=== PATIENT | female | born 1970 | race Caucasian/White ===

== ENCOUNTER 2017-10-22 17:13 | Emergency (ER) | payer OTHER ==
[~2017-10-22] VITALS: Ht 160 cm; Wt 131.1 kg
--- NOTE | 2017-10-22 20:14 | Diagnostic Imaging Report ---
RIBS UNILAT W/CXR Comparison: None Clinical history: \S\Right lateral rib pain, focal \S\20171022 \S\1914 Findings: The chest was incompletely imaged with the left hemithorax excluded. Otherwise no acute abnormality seen. No acute rib fracture seen. Impression: No acute bony abnormality Signed by: Dr Dinorah Gama MD on 10/22/2017 8:11 PM
--- NOTE | 2017-10-22 20:15 | Diagnostic Imaging Report ---
CHEST 2 VIEWS, Technique: CHEST 2 VIEWS Comparison: None Clinical history: Right lateral chest/rib pain, focal DISCUSSION: Heart/mediastinum: Normal Lungs: Several nodules project over the right lower lung, the largest measuring 1 cm. No consolidation or edema. Pleural spaces: No effusion or pneumothorax. IMPRESSION: No acute abnormality Several nodules projecting over the right lower lung, largest 1 cm. Recommend follow-up nonemergent CT chest. Signed by: Dr Dinorah Gama MD on 10/22/2017 8:12 PM
[2017-10-22 22:25] VITALS: BP 132/76
== END 2017-10-22 22:53 | disposition home or self-care (01) ==
LOC: ER 17:13
DX: R07.89 Other chest pain (principal); R91.8 Other nonspecific abnormal finding of lung field
CPT/HCPCS: 71020; 71101; 99283

== ENCOUNTER 2018-10-12 20:22 | Observation (INO) | payer OTHER ==
[~2018-10-12] VITALS: Ht 160 cm; Wt 128.0 kg
--- OUTSIDE RECORDS SUMMARY | 2018-10-12 20:25 | XMS REPORT | CCD ---
Author Author Auto Generated Organization [facility] Address Unknown Phone Unavailable Care Team Providers Care Driver Retraining Instructor Name Role Phone Clara Packer RP Allergies, Adverse Reactions, Alerts Substance Reaction Status NKDA Active
--- OUTSIDE RECORDS SUMMARY | 2018-10-12 20:25 | XMS REPORT ---
Author Author [facility] Address Unknown Phone Unavailable Care Team Providers Care Cath Lab Technologist Name Role Phone Talita FERNANDES Unavailable Unavailable Problems This patient has no known problems. Allergies, Adverse Reactions, Alerts This patient has no known allergies or adverse reactions. Medications This patient has no known medications. Results Test Description Test Time Test Comments Text Results Atomic Results Result Comments SCR MAMM BILATERAL GLENN CAD DIGITAL 2018-10-06 08:48:21 - SCR MAMM BILATERAL GLENN CAD DIGITALBILATERAL DIGITAL SCREENING MAMMOGRAM 3D/2D WITH CAD: 10/06/2018CLINICAL: Asymptomatic. Digital breast tomosynthesis was performed in addition to routine CC and MLO views. Current mammographic images were evaluated by either a [employer] M-Vu or a [employer] ImageChecker CAD (computer aided detection system). Comparison is made to exams dated 08/26/2017 mammogram, 07/27 mammogram, and 01/05/2011 mammogram - [facility]. There are scattered fibroglandular tissues in both breasts. There is a benign intramammary node in the right breast. No suspicious mass, architectural distortion, malignant type calcification, or lymph node abnormality detected. Breast architecture is stable compared to prior exams.IMPRESSION: BENIGNThere is no mammographic evidence of malignancy. Resume annual screening mammography in one year. Magalys Young M.D. ar/penrad:10/06/2018 08:48:21 Mill Labor Supervisor: Adela MERCADO, [facility]: BIRADS 1-2 Normal Mammogram BI-RADS: 2 Benign RIBS UNILAT W/CXR [id number] [place], [place] [address] Patient Name: PRAKASH CARL MR #: [id number] : 1970 Age/Sex: 47/F Req #: [id number] Adm Physician: Ordered by: DARNELL NOVAK TECHNICAL SERVICE REP Report #: [id number] Location: ER Room/Bed: Procedure: [id number] DX/RIBS UNILAT W/CXR Exam Date: 10/22/17 Exam Time: 1914 REPORT STATUS: Signed RIBS UNILAT W/CXR Comparison: None Clinical history: S Right lateral rib pain, focal S 20171022 S 1914 Findings: The chest was incompletely imaged with the left hemithorax excluded. Otherwise no acute abnormality seen. No acute rib fracture seen. Impression: No acute bony abnormality Signed by: Dr Stalin Gama MD on 10/22/2017 8:11 PM Dictated By: STALIN GAMA MD 10 Transcribed By: ELIUD on 10/22/172010 COPY TO: DARNELL NOVAK TECHNICAL SERVICE REP CHEST 2 VIEWS [place] [address] Patient Name: PRAKASH CARL MR #: [id number] : 1970 Age/Sex: 47/F Req #: [id number] Adm Physician: Ordered by: DARNELL NOVAK TECHNICAL SERVICE REP Report #: [id number] Location: ER Room/Bed: Procedure: [id number] DX/CHEST 2 VIEWS Exam Date: 10/22/17 Exam Time: 191 REPORT STATUS: Signed CHEST 2 VIEWS, Technique: CHEST 2 VIEWS Comparison: None Clinical history: Right lateral chest/rib pain, focal DISCUSSION: Heart/mediastinum: Normal Lungs: Several nodules project over the right lower lung, the largest measuring 1 cm. No consolidation or edema. Pleural spaces: No effusion or pneumothorax. IMPRESSION: No acute abnormality Several nodules projecting over the right lower lung, largest 1 cm. Recommend follow- up nonemergent CT chest. Signed by: Dr Stalin Gama MD on 10/22/2017 8:12 PM Dictated By: STALIN GAMA MD 11 Transcribed By: ELIUD on 10/22/172011 COPY TO: DARNELL NOVAK NP
--- OUTSIDE RECORDS SUMMARY | 2018-10-12 20:25 | XMS REPORT | Continuity of Care Document ---
Author Author [facility] Address Unknown Phone Unavailable Problems Problem Status Onset Date Classification Date Reported Comments Source BACK PAIN Active 02/05/2012 [facility] NEUROPATHY Active [facility] Medications Medication Details Route Status Patient Instructions Ordering Provider Order Date Source Vicodin 5/500 oral tablet 1 tab, PO, Q4H, PRN, 14 tab, for pain, Substitution Allowed, Maintenance, TAB PO Active [place] 02/06/2012 [facility] morphine Sulfate 2 mg, Route: IM, ONCE, Priority: STAT, Start date: 02/06/12 2:25:00, Stop date: 02/06/12 2:25:00 IM No Longer Active [place] 02/06/2012 [facility] Allergies, Adverse Reactions, Alerts Substance Category Reaction Severity Reaction type Status Date Reported Comments Source Immunizations Immunization Date Given Site Status Last Updated Comments Source Results Order Name Results Value Reference Range Date Interpretation Comments Source Vital Signs Vital Sign Value Date Comments Source Height 162.56 cm 02/06/2012 [facility] Weight 140.909 02/06/2012 [facility] Encounters Location Location Details Encounter Type Encounter Number Reason For Visit Attending Provider ADM Date DC Date Status Source [facility] Emergency [id number] VAISHALI PRATT 02/06/2012 02/06/2012 Active [facility] Outpatient [id number] NEUROPATHY AMIR GHEBRANIOUS 02/08/2012 Active [facility] Procedures Procedure Code Date Perfomer Comments Source
--- NOTE | 2018-10-12 20:55 | NUR ---
TRIAGE, INITIAL ACTIONS AND ASSESSMENT DOCUMENTED PER THIS NURSE
[2018-10-12 21:02] LABS: BASOPHILS # (AUTO) 0.1 (0.0-0.1); BASOPHILS % 0.5 % (0.0-1.0); EOSINOPHILS # (AUTO) 0.3 (0.0-0.4); EOSINOPHILS % 2.4 % (0.0-6.0); HEMATOCRIT 41.8 % (34.2-44.1); HEMOGLOBIN 14.2 g/dL (12.0-16.0); LYMPHOCYTES # (AUTO) 3.5 (1.0-3.2); LYMPHOCYTES % 31.8 % (18.0-39.1); MEAN CORPUSCULAR HEMOGLOBIN 27.7 pg (28-32); MEAN CORPUSCULAR VOLUME 81.5 fL (81-99); MONOCYTES # (AUTO) 0.9 (0.2-0.8); MONOCYTES % 7.7 % (4.4-11.3); NEUTROPHILS # (AUTO) 6.4 (2.1-6.9); NEUTROPHILS % 57.3 % (38.7-80.0); PLATELET COUNT 304 x10e3/uL (140-360); RED BLOOD COUNT 5.13 x10e6/uL (3.6-5.1); RED CELL DISTRIBUTION WIDTH 12.8 % (11.7-14.4)
[2018-10-12] MEDS ORDERED: LISINOPRIL20 MG PO (21:10)
[2018-10-12] MEDS ORDERED: HYDROCHLOROTHIA25 MG PO (21:10)
[2018-10-12 21:16] LABS: ALBUMIN 3.8 g/dL (3.5-5.0); ANION GAP 12.1 mmol/L (8-16); MAGNESIUM 2.2 MG/DL (1.3-2.1); POTASSIUM 3.1 mmol/L (3.5-5.1)
[2018-10-12 21:23] LABS: CREATINE KINASE MB 0.3 ng/mL (0-5.0)
--- NOTE | 2018-10-12 21:31 | Diagnostic Imaging Report ---
EXAM: CHEST SINGLE (PORTABLE), AP 1 view INDICATION: Chest pain COMPARISON: PA and lateral view of the chest October 22, 2017 FINDINGS: LINES/TUBES: None LUNGS: No consolidations or edema. PLEURA: No effusions or pneumothorax. HEART AND MEDIASTINUM: Normal size and contour. BONES AND SOFT TISSUES: No acute findings. IMPRESSION: No acute thoracic abnormality. Signed by: Dr. Kimberly Allison M.D. on 10/12/2018 9:27 PM
[2018-10-12 21:36] LABS: AMYLASE 46 U/L (25-125); LIPASE 20 U/L (8-78)
[2018-10-12] MEDS ORDERED: PANTOPRAZOLE 40 MG 10ML VIAL IV STA (22:17)
[2018-10-12] MEDS ORDERED: NITROGLYCERIN 0.4 MG SUBL SL PRN (22:45)
[2018-10-12] MEDS ORDERED: MORPHINE SULFATE 2 MG/ML SYR 1ML IV PRN (22:45)
[2018-10-12] MEDS ORDERED: ONDANSETRON HCL INJ 2 MG/ML VIAL IV PRN (22:45)
[2018-10-12 23:10] VITALS: BP 124/73
[2018-10-12] MEDS ORDERED: POTASSIUM CHLORIDE 20 MEQ TAB CR PO STA (23:20)
[2018-10-12 23:24] VITALS: BP 124/73
[2018-10-12 23:28] VITALS: BP 124/73
[2018-10-13 04:25] VITALS: BP 101/53
[2018-10-13 05:21] LABS: BASOPHILS # (AUTO) 0.1 (0.0-0.1); BASOPHILS % 0.7 % (0.0-1.0); EOSINOPHILS # (AUTO) 0.2 (0.0-0.4); HEMATOCRIT 37.1 % (34.2-44.1); HEMOGLOBIN 12.2 g/dL (12.0-16.0); LYMPHOCYTES # (AUTO) 2.8 (1.0-3.2); LYMPHOCYTES % 37.7 % (18.0-39.1); MEAN CORPUSCULAR HEMOGLOBIN 27.2 pg (28-32); MEAN CORPUSCULAR HGB CONC 32.9 g/dL (31-35); MEAN CORPUSCULAR VOLUME 82.8 fL (81-99); MONOCYTES # (AUTO) 0.6 (0.2-0.8); MONOCYTES % 7.8 % (4.4-11.3); NEUTROPHILS # (AUTO) 3.7 (2.1-6.9); NEUTROPHILS % 50.4 % (38.7-80.0); PLATELET COUNT 261 x10e3/uL (140-360); RED BLOOD COUNT 4.48 x10e6/uL (3.6-5.1); RED CELL DISTRIBUTION WIDTH 12.7 % (11.7-14.4)
[2018-10-13 05:49] LABS: CREATINE KINASE MB 0.3 ng/mL (0-5.0)
[2018-10-13 06:41] LABS: BLOOD UREA NITROGEN 18 mg/dL (7-26); BUN/CREATININE RATIO 21 (6-25); CALCIUM 8.9 mg/dL (8.4-10.2); CARBON DIOXIDE 26 mmol/L (22-29); CHLORIDE 105 mmol/L (98-107); CHOL/HDL RATIO 3.7 (3.0-3.6); CHOLESTEROL 170 MD/DL (0-199); CREATININE, SERUM 0.87 mg/dL (0.57-1.11); EST GLOMERULAR FILTRATION RATE > 60 ML/MIN (60-); GLUCOSE 90 mg/dL (74-118); HDL CHOLESTEROL 46 MG/DL (40-60); LDL CHOLESTEROL 112 MG/DL (60-130); SODIUM 138 mmol/L (136-145); TRIGLYCERIDES 62 MG/DL (0-149)
[2018-10-13] MEDS ORDERED: HYDRALAZINE HCL 20 MG/ML VIAL IV PRN (06:45)
[2018-10-13] MEDS ORDERED: ACETAMINOPHEN 325 MG TAB PO PRN (06:45)
[2018-10-13] MEDS ORDERED: FAMOTIDINE20 MG PO (06:52)
[2018-10-13] MEDS ORDERED: REGLAN10 MG PO (06:52)
--- NOTE | 2018-10-13 07:19 | NUR ---
Patient resting in bed, talking to family, not in any distress, denies any CP or SOB, Family at bed side, call light in reach,keep monitoring
[2018-10-13] MEDS ORDERED: METOCLOPRAMIDE HCL 10 MG/2ML VIAL IV SCH (07:30)
[2018-10-13 08:00] VITALS: BP 129/65
[2018-10-13] MEDS ORDERED: PANTOPRAZOLE 40 MG 10ML VIAL IV SCH (09:00)
[2018-10-13] MEDS ORDERED: ASPIRIN 81 MG ENTERIC COATED PO SCH (09:00)
[2018-10-13] MEDS ORDERED: LISINOPRIL 20 MG TAB PO SCH (09:00)
[2018-10-13] MEDS ORDERED: HYDROCHLOROTHIAZIDE 25 MG TAB PO SCH (09:00)
[2018-10-13 09:55] VITALS: BP 129/65
--- NOTE | 2018-10-13 10:43 | NUR ---
SOCIAL WORK INITIAL ASSESSMENT Certified Prosthetist Vice President to bedside to discuss plan of care with patient/family. CM/SW role and care transitions discussed. Anticipated discharge plan discussed along with duration of care. CM/SW discussed patients right to make decisions in care. CM/SW work hours given. Patient lives: IN OWN HOUSE WITH FAMILY Admit/Transfer: VIA ED FROM HOME POA/Emergency contact: ALIE [phone] Current/Previous Home Health: NONE PCP/Follow-up Care: MAX Current/Previous DME: NONE Other Services: NONE Employment Status: [employer] Areas of Concerns: NONE Referral Needs: NONE Education Needs: NONE IMM/HAYNES given and signed (if applicable): NA Goal for discharge: RETURN HOME INDEPENDENTLY CM/SW left business card at the bedside with contact information. Name and number was also written on the patients whiteboard. Patient verbalized understanding of discussion. CM will follow-up with ongoing discharge and transition of care needs.
--- NOTE | 2018-10-13 11:19 | NUR ---
Echo done, Dr Ferguson here for rounds, he saw Echo result and stated its Normal Echo and patient can go home, Notified Vicenta CONCRETE BATCH PLANT OPERATOR and she has given discharge order.
--- NOTE | 2018-10-13 11:42 | NUR ---
patient discharged home, Alert with no distress,denies any pain, explained about discharge medication and verbalized understanding, patient aware about f/up appointment, TELE box returned, IV canula removed with tip intact NO SS of infiltration noted. refused wheelchair to transfer, escort with her to front lobby.
--- NOTE | 2018-10-13 16:39 | Discharge Summary ---
ADMISSION DIAGNOSES 1. Chest pain. 2. Hypertension. 3. Hypokalemia. 4. Acute kidney injury. 5. Hyponatremia. 6. Leukocytosis. DISCHARGE DIAGNOSES 1. Chest pain. 2. Hypertension. 3. Hypokalemia. 4. Acute kidney injury. 5. Hyponatremia. 6. Leukocytosis. 7. Ruled out acute coronary syndrome. MEDICAL HISTORY: Hypertension, hiatal hernia. SURGICAL HISTORY: times 2. FAMILY HISTORY: Patient's mother and father both have cancer. Patient's grandmother had a stroke. HOSPITAL COURSE: A 48-year-old female complains of intermittent aching chest pain that began under her left breast and radiated to her back. Pain is worsened by nothing and improved with Protonix in the ER. She denies nausea, vomiting, dizziness, diaphoresis, and shortness of breath. Pain began shortly after eating tacos prior to admission. On admission, troponins were negative times 3. Patient was given aspirin, Protonix and Reglan. Echo showed an EF of 65% to 70% with trace MR and TR. BNP was 12.3. Potassium was 3.1 and repleted. Leukocytosis resolved prior to discharge. Patient will follow up with primary care in 1-2 weeks. She was given a prescription for Pepcid and Reglan. Patient's lipid panel was within normal limits. Patient understands discharge instructions and agrees to plan. Vital signs stable. Patient afebrile. DICTATED BY CEZAR MACIEL NP BLAIR MCKNIGHT MD Job#: [id number] [place]
== END 2018-10-13 11:36 | disposition home or self-care (01) ==
LOC: ER 20:22 → ERHOLD 22:41 → INTOOBSV 22:41 → IMCU 22:59
PROVIDERS: ADMIT Internal Medicine; ATTEND Internal Medicine
DX: R07.9 Chest pain, unspecified (principal); N17.9 Acute kidney failure, unspecified; E87.6 Hypokalemia; E87.1 Hypo-osmolality and hyponatremia; K44.9 Diaphragmatic hernia without obstruction or gangrene; D72.829 Elevated white blood cell count, unspecified; I10 Essential (primary) hypertension; Z82.49 Family history of ischemic heart disease and other diseases of the circulatory system; Z82.3 Family history of stroke; Z80.9 Family history of malignant neoplasm, unspecified
CPT/HCPCS: 36415 ×2; 71045; 80048; 80053; 80061; 82150; 82550 ×2; 82553 ×2; 83690; 83735; 83880; 84484 ×2; 85025 ×2; 93005; 93306; 99284; G0378 ×2; J2765

== ENCOUNTER 2021-12-16 17:00 | Emergency (ER) | payer OTHER ==
[~2021-12-16] VITALS: Ht 160 cm; Wt 127.9 kg
[~2021-12-16 17:00] MED LIST: FAMOTIDINE20 MG PO; HYDROCHLOROTHIA25 MG PO; LISINOPRIL20 MG PO; REGLAN10 MG PO
[2021-12-16] MEDS ORDERED: ASPIRIN 81 MG CHEW TAB PO ONE (17:30)
[2021-12-16] MEDS ORDERED: KETOROLAC TROMETHAMINE 30 MG/ML VIAL IV STA (17:31)
[2021-12-16 17:55] LABS: BASOPHILS # (AUTO) 0.1 (0.0-0.1); BASOPHILS % 0.6 % (0.0-1.0); EOSINOPHILS # (AUTO) 0.3 (0.0-0.4); EOSINOPHILS % 3.6 % (0.0-6.0); HEMATOCRIT 39.1 % (34.2-44.1); HEMOGLOBIN 12.8 g/dL (12.0-16.0); LYMPHOCYTES # (AUTO) 2.5 (1.0-3.2); LYMPHOCYTES % 31.6 % (18.0-39.1); MEAN CORPUSCULAR HEMOGLOBIN 26.9 pg (28-32); MEAN CORPUSCULAR HGB CONC 32.7 g/dL (31-35); MEAN CORPUSCULAR VOLUME 82.1 fL (81-99); MONOCYTES # (AUTO) 0.8 (0.2-0.8); MONOCYTES % 9.3 % (4.4-11.3); NEUTROPHILS # (AUTO) 4.4 (2.1-6.9); NEUTROPHILS % 54.7 % (38.7-80.0); PLATELET COUNT 284 x10e3/uL (140-360); RED BLOOD COUNT 4.76 x10e6/uL (3.6-5.1); RED CELL DISTRIBUTION WIDTH 13.3 % (11.7-14.4)
[2021-12-16 18:14] LABS: ALBUMIN 3.7 g/dL (3.5-5.0); ANION GAP 13.6 mmol/L (8-16); CALCIUM 9.1 mg/dL (8.4-10.2); CREATININE, SERUM 0.77 mg/dL (0.57-1.11); POTASSIUM 3.6 mmol/L (3.5-5.1)
[2021-12-16 18:21] LABS: CREATINE KINASE MB 0.3 ng/mL (0-5.0)
[2021-12-16 18:57] VITALS: BP 135/80
== END 2021-12-16 18:58 | disposition home or self-care (01) ==
LOC: ER 17:08
DX: R07.9 Chest pain, unspecified (principal); I10 Essential (primary) hypertension; R94.31 Abnormal electrocardiogram [ECG] [EKG]
CPT/HCPCS: 36415; 71046; 80053; 82550; 82553; 84484; 85025; 85379; 93005; 99284; J1885; U0002

== ENCOUNTER 2024-10-19 19:09 | Emergency (ER) | payer OTHER ==
[~2024-10-19] VITALS: Ht 160 cm; Wt 127.9 kg
[~2024-10-19 19:09] MED LIST changes: +CYCLOBENZAPRINE5 MG PO
[2024-10-19 20:10] VITALS: PULSE 73; RESP 18; TEMP 98.3
[2024-10-19 20:51] LABS: BASOPHILS % 0.7 % (0.0-1.0); EOSINOPHILS # (AUTO) 0.2 (0.0-0.4); EOSINOPHILS % 3.6 % (0.0-6.0); HEMATOCRIT 40.6 % (34.2-44.1); HEMOGLOBIN 12.4 g/dL (12.0-16.0); LYMPHOCYTES # (AUTO) 1.7 (1.0-3.2); LYMPHOCYTES % 28.3 % (18.0-39.1); MEAN CORPUSCULAR HEMOGLOBIN 26.5 pg (28-32); MEAN CORPUSCULAR HGB CONC 30.5 g/dL (31-35); MEAN CORPUSCULAR VOLUME 86.8 fL (81-99); MONOCYTES # (AUTO) 0.5 (0.2-0.8); MONOCYTES % 9.2 % (4.4-11.3); NEUTROPHILS # (AUTO) 3.4 (2.1-6.9); PLATELET COUNT 269 x10e3/uL (140-360); RED BLOOD COUNT 4.68 x10e6/uL (3.6-5.1); RED CELL DISTRIBUTION WIDTH 13.2 % (11.7-14.4)
[2024-10-19 20:52] LABS: ALBUMIN 3.9 g/dL (3.5-5.0); ALBUMIN/GLOBULIN RATIO 1.1 (0.8-2.0); ANION GAP 15.9 mmol/L (8-16); BILIRUBIN,TOTAL 0.5 mg/dL (0.2-1.2); CALCIUM 9.7 mg/dL (8.4-10.2); CREATININE, SERUM 0.76 mg/dL (0.57-1.11); TOTAL PROTEIN 7.3 g/dL (6.5-8.1)
[2024-10-19 20:53] LABS: POTASSIUM 2.9 mmol/L (3.5-5.1)
[2024-10-19 21:26] LABS: LIPASE 12 U/L (8-78)
[2024-10-19] MEDS: POTASSIUM CHLORIDE 20 MEQ TAB CR PO STA (22:07)
[2024-10-19] MEDS: SODIUM CHLORIDE 0.9% 1000ML 1,000 ML IV ONE (22:07)
[2024-10-19] MEDS: ACETAMINOPHEN 325 MG TAB PO PRN (22:11)
[2024-10-19 23:07] LABS: BILIRUBIN,URINE NEGATIVE (NEGATIVE); CLARITY,URINE CLEAR (CLEAR); COLOR,URINE YELLOW (YELLOW); GLUCOSE, URINE NEGATIVE (NEGATIVE); KETONES,URINE NEGATIVE (NEGATIVE); LEUKOCYTE ESTERASE ,URINE NEGATIVE (NEGATIVE); NITRITE,URINE NEGATIVE (NEGATIVE); PH,URINE 5.5 (5 - 7); PROTEIN,URINE DIPSTICK NEGATIVE (NEGATIVE); URINE UROBILINOGEN 0.2 mg/dL (0.2 - 1)
[2024-10-19 23:29] LABS: BACTERIA,URINE MODERATE /HPF; EPITHELIAL CELLS,URINE MANY /LPF; RBC,URINE 0-5 /HPF (0-5)
[2024-10-19] MEDS ORDERED: CIPRO500 MG PO (23:53)
[2024-10-19] MEDS ORDERED: METRONIDAZOLE500 MG PO (23:53)
[2024-10-19] MEDS ORDERED: ONDANSETRON ODT4 MG SL (23:53)
[2024-10-20 00:11] VITALS: BP 146/77; O2SAT 98
[2024-10-20] MEDS ORDERED: IOPAMIDOL 370 MG/ML 100 ML INFUS..BTL INJ ONE (01:12)
[2024-10-20] MEDS ORDERED: SODIUM CHLORIDE 0.9% 100 ML ONE (01:12)
== END 2024-10-20 00:10 | disposition home or self-care (01) ==
LOC: ER 21:15
DX: R10.32 Left lower quadrant pain (principal); K57.90 Diverticulosis of intestine, part unspecified, without perforation or abscess without bleeding; K92.1 Melena; R19.7 Diarrhea, unspecified; R91.8 Other nonspecific abnormal finding of lung field; D35.02 Benign neoplasm of left adrenal gland
CPT/HCPCS: 36415; 74174; 80053; 81001; 83690; 84702; 85025; 99284; J7030; J7050; Q9967